=== PATIENT | female | born 1930 | race Caucasian/White ===

== ENCOUNTER 2018-06-04 12:56 | Observation (INO) ==
[2018-06-04] MEDS ORDERED: IOPAMIDOL 100 ML BOTTLE IV ONE (12:57)
[2018-06-04] MEDS ORDERED: 0.9 % SODIUM CHLORIDE 1,000 ML IV ONE (13:05)
[2018-06-04 13:50] LABS: Basophils # (Auto) 0 K/mcL (0.0-0.3); Basophils % (Auto) 0.3 % (0.0-2.0); Eosinophils # (Auto) 0 K/mcL (0.0-0.7); Eosinophils % (Auto) 0 % (0.0-7.0); Granulocytes % (Auto) 87.7 % (38.0-78.0); Lymphocytes % (Auto) 8.6 % (15.5-49.0); Mean Cell Volume 91.4 fL (80.0-100.0); Monocytes # (Auto) 0.4 K/mcL (0.1-0.9); Monocytes % (Auto) 3.4 % (1.0-12.0); Platelet Count 175 K/mcL (140-440); RBC 4.54 M/mcL (4.00-5.20); Red Cell Distribution Width 15.8 % (11.5-14.5)
[2018-06-04 14:12] LABS: ALT/SGPT 23 U/l (0-40); Albumin 4.4 gm/dL (3.2-5.2); Albumin/Globulin Ratio 1.6 (1.0-2.3); Alkaline Phosphatase 89 U/L (39-117); Blood Urea Nitrogen 22 mg/dl (8-23)
--- NOTE | 2018-06-04 15:01 | Cat Scan Report ---
CLINICAL INFORMATION: Trauma COMPARISON: Chest CT 09/14/2007 TECHNIQUE: 280 cc of [id number]-300 were injected intravenously, and 50 seconds later 2.5 mm helical slices were obtained from the lung apices through the subtrochanteric regions of the femurs. Following reconstruction, 2.5 mm sagittal, coronal and axial reformatted images were processed and reviewed at multiple windows and levels. 7 mm MIP reconstructions were obtained through the lungs to optimize nodule detection.The exam was performed using radiation dose optimization techniques including, but not limited to, automated exposure control, adjustment of the mA and/or kV according to patient size and use of iterative reconstruction technique. FINDINGS: Pulmonary parenchymal windows show only minimal scattered scarring and atelectasis in both posterior lower lobes. A small simple appearing left pleural effusion is noted. There is no pneumothorax or hemothorax. Mediastinal windows show the heart is moderately enlarged with mild calcification in the aortic and mitral valve region. There is also calcific plaque in the coronary arteries. The thoracic aorta and pulmonary arteries are normal in contour and caliber. 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 There is no adenopathy in the mediastinal hilar or axillary regions. Images through the abdomen show liver is unremarkable. Gallbladder is surgically absent. 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 This is unchanged from the 2008 CT most compatible with postcholecystectomy papillary stenosis. Pancreas, including the pancreatic duct, is unremarkable. Both kidneys, adrenal glands, spleen are normal. Aorta is normal in contour and caliber with scattered atherosclerotic plaque. Images of the pelvis to the urinary bladder to be normal. Normal-appearing postmenopausal uterus appreciated. There is no free air or free fluid. The stomach, small and large bowel show mild symmetric dilatation moderate stool compatible with mild ileus. Bone windows show no fracture or other acute posttraumatic change. Degenerative mild listhesis present at L3-4 and L4-5. IMPRESSION: 1. No posttraumatic change seen throughout the chest, abdomen or pelvis 2. Moderate dilatation of the intrahepatic and common bile ducts and bowel post cholecystectomy papillary stenosis. It is unchanged from the [address] 3. Mild ileus with a marked amount of colonic stool. 4. Aberrant right subclavian artery - a normal variant Interpreted and Authenticated by: Red Gutierrez 06/04/18
[2018-06-04] MEDS ORDERED: 0.9 % SODIUM CHLORIDE 1,000 ML IV SCH (15:15)
--- NOTE | 2018-06-04 16:24 | Emergency Department Note ---
Weakness HPI - General Chief complaint: Weakness Stated complaint: fall, weakness, back pain Time Seen by Provider: 06/04/18 13:05 Source: patient, EMS Mode of arrival: EMS Limitations: no limitations - History of Present Illness HPI Narrative: 87-year-old female presents with family. She apparently took a fall this morning. Patient will not answer any questions other than yes or no if something hurts. Will not let us know it is going on. She does deny any head or neck pain. States the rest of her body hurts all over. She cannot pinpoint any pain. Just closes her eyes and does not answer if she does not feel like answering. Family states that 3 months ago she moved in with them because her went to a [facility] due to a brain tumor. He recently a couple weeks ago. Since he she has been rapidly declining and refuses to eat or drink much and has some generalized weakness. This morning they heard 2 thumps and went upstairs and she had fallen was on her back. She is complaining of pain in her back, chest, abdomen, pelvis and all over. Denies head or neck pain. They state when she eats she eats a decent amount but she will go a long time without eating. Seems to be much worse the last 48 hours and they are unsure what agree that she has some depression that they think is factoring into this. They state if she gets better and returns to baseline at home they can care for her but they cannot care for her the way she is currently. Patient denies hitting her head and denies loss of consciousness Associated symptoms: Reports: loss of appetite, myalgias. Denies: fever/chills, headaches, nausea/vomiting, shortness of breath, syncope - Related Data Home Medications Medication Instructions Recorded Confirmed Aspirin [Lo-Dose Aspirin EC] 81 mg PO DAILY 06/04/18 06/04/18 Levothyroxine [Synthroid] 50 mcg PO DAILY 06/04/18 06/04/18 NIFEdipine [Nifedipine ER] 30 mg PO DAILY 06/04/18 06/04/18 cloNIDine HCL [Catapres] 0.1 mg PO DAILY 06/04/18 06/04/18 Allergies Allergy/AdvReac Type Severity Reaction Status Date / Time No Known Drug Allergies Allergy Verified 06/04/18 12:59 Review of Systems All systems ED: reviewed and negative except as stated. Past Medical History - Past Medical History Source: other (Patient is extremely poor historian and is not giving us any information at this time.) - Social History smoking status: Unknown if ever smoked Alcohol use: Reports: None Drug use: Reports: none Physical Exam Limitations: no limitations General appearance: alert (Alert and oriented and will respond appropriately and verbally when she feels like it and other times just closes her eyes and refuses to respond.) Head: atraumatic, normocephalic, normal inspection Eye: Present: normal appearance. Absent: conjunctival injection ENT: normal exam, normal oropharynx, mucous membranes moist, TM's normal bilaterally, normal external ear exam Neck: Present: normal inspection, full ROM, trachea midline. Absent: tendern ess, meningismus Chest: Present: symmetric chest wall rise, tenderness (Seems to have some tenderness no matter where you press on her chest but no pinpoint tenderness. No obvious deformity, rash, lesion, ecchymosis, or edema. No crepitus.) Respiratory: Present: normal lung sounds bilaterally. Absent: respiratory distress, rales/crackles, accessory muscle use Cardiovascular: Present: regular rate, normal heart sounds Abdominal: Present: soft, normal bowel sounds. Absent: distention, tenderness, guarding, rebound Extremities: Present: normal inspection. Absent: pedal edema Back: Present: tenderness (Diffuse tenderness throughout the back. Cannot pinpoint any tenderness specifically is anywhere you touch her it hurts.), other (No step-off or deformity). Absent: rashes Psychiatric: Present: depressed, flat affect Skin: Present: warm, dry, intact, normal color Course Course Narrative: At [address] I did speak with Dr[address] Edwards about this patient. He agrees to admit her observation Vital Signs Temperature 98.8 F 06/04/18 12:57 Pulse Rate 62 06/04/18 12:57 Respiratory Rate 18 06/04/18 12:57 Blood Pressure 167/83 06/04/18 12:57 Pulse Oximetry (%) 100 06/04/18 12:57 Temperature 98.8 F 06/04/18 12:57 Pulse Rate 77 06/04/18 15:29 Respiratory Rate 18 06/04/18 15:29 Blood Pressure 168/78 06/04/18 15:29 Pulse Oximetry (%) 96 06/04/18 15:29 Weakness - Lab Data Result diagrams: 06/04/18 13:09 06/04/18 13:09 Lab Results 06/04/18 06/04/18 Range/Units 13:09 13:09 WBC 11.9 H (4.5-11.0) K/mcL RBC 4.54 (4.00-5.20) M/mcL Hgb 13.3 (12.0-15.0) g/dL Hct 41.5 (36.0-48.0) % POC Hct 42.0 (36.0-48.0) % MCV 91.4 (80.0-100.0) fL MCH 29.3 (26.0-34.0) pg MCHC 32.0 (31.0-36.0) g/dL RDW 15.8 H (11.5-14.5) % Plt Count 175 (140-440) K/mcL MPV 10.1 (7.4-10.4) fL Gran % 87.7 H (38.0-78.0) % Lymph % (Auto) 8.6 L (15.5-49.0) % [place] % (Auto) 3.4 (1.0-12.0) % Eos % (Auto) 0 (0.0-7.0) % Baso % (Auto) 0.3 (0.0-2.0) % Gran # 10.5 H (1.8-8.0) K/mcL Lymph # (Auto) 1.0 L (1.5-4.8) K/mcL [place] # (Auto) 0.4 (0.1-0.9) K/mcL Eos # (Auto) 0 (0.0-0.7) K/mcL Baso # (Auto) 0 (0.0-0.3) K/mcL POC Sodium 141 (133-145) mmol/L Sodium 142 (133-145) mmol/L POC Potassium 4.0 (3.3-5.1) mmol/L Potassium 4.3 (3.3-5.1) mmol/L POC Chloride 104 (96-108) mmol/L Chloride 103 (96-108) mmol/L Carbon Dioxide 21 L (22-30) mmol/L POC Total CO2 24 (22-30) mmol/L Anion Gap 18.0 H (8-16) POC BUN 25 H (8-23) mg/dl BUN 22 (8-23) mg/dl Creatinine 1.2 H (0.6-1.1) mg/dl POC Creatinine 1.1 (0.6-1.1) mg/dl GFR Calculation 40 Glucose 122 H (70-105) mg/dL POC Glucose 118 H (70-105) mg/dL Calcium 10.4 (8.6-10.4) mg/dl POC WB Ioniz Calcium 1.26 (1.16-1.32) mmol/L Total Bilirubin 0.6 (0.0-1.0) mg/dL AST 37 (0-37) U/l ALT 23 (0-40) U/l Alkaline Phosphatase 89 (39-117) U/L Total Protein 7.2 (5.9-8.4) gm/dL Albumin 4.4 (3.2-5.2) gm/dL Globulin 2.8 (2.2-3.7) gm/dL Albumin/Globulin Ratio 1.6 (1.0-2.3) Disposition Pt seen by [facility] SERVICE ASSOCIATE/PA only: No Clinical Impression: FTT (failure to thrive) in adult, Weakness, Fall, Generalized pain, Depression Disposition: Xfer As Outpt/Obs ([facility]) Condition: Fair Time of Disposition: 16:30
--- NOTE | 2018-06-04 16:46 | Internal Med History&Physical ---
Medical - H&P: HPI Patient information: Note initiated : 06/04/18 at 4:44 pm Service Date, if different from initiated Date: [] Patient: Yudith Mas a 87 y/o F admitted on for Fall, Weakness, Back Pain. Chief Complaint: [] Chief complaint: weakness, fall History of present illness: Ms. Mas is a 87 year old F who presents to the ER after sustaining a fall this morning. Patient is accompanied with her son Souleymane. She has been gradually losing weight over the last few months and has since moved with her son and [id number] residing in the [place]. Souleymane says she has gained 8 pounds with colsely monitored diet but her appetite and activity remains limited. She lost her in early this month. As per family Yudith has been fairly depressed grieving her 's loss. This morning after getting up family heard a thud and found her on the floor. She was in minimal pain. She was absolutely brought in later in the afternoon to the ER. Initial workup was essentially unremarkable including CT abdomen pelvis except for mild dehydration and a BMI of 15. Hospitalist service was consulted in light of severe weakness failure to thrive. At the time of evaluation patient is accompanied with her son and [id number]. Most of the history is obtained from the family. Patient however was able to endorse to review of systems and denies fever chills, diarrhea, shortness of breath, chest pain, lightheadedness. She attributes fall to getting off balance. Review of systems 10 point review system was performed and is negative except for one discussed above Medical - H&P: PMH Medical history: Hypothyroid HTN Medical - H&P: Meds Home Medications Medication Instructions Recorded Confirmed Type Aspirin [Lo-Dose Aspirin EC] 81 mg PO DAILY 06/04/18 06/04/18 History Levothyroxine [Synthroid] 50 mcg PO DAILY 06/04/18 06/04/18 History NIFEdipine [Nifedipine ER] 30 mg PO DAILY 06/04/18 06/04/18 History cloNIDine HCL [Catapres] 0.1 mg PO DAILY 06/04/18 06/04/18 History Allergies Allergy/AdvReac Type Severity Reaction Status Date / Time No Known Drug Allergies Allergy Verified 06/04/18 12:59 Medical - H&P: Exam - Constitutional Vitals: Temp Pulse Resp BP Pulse Ox 98.8 F 77 18 168/78 96 06/04/18 12:57 06/04/18 15:29 06/04/18 15:29 06/04/18 15:29 06/04/18 15:29 General appearance: thin Exam: Patient withdrawn and fatigued however alert Eye movements symmetrical Oral cavity dry Temporal wasting No ear nose discharge Neck no lymph adenopathy S1-S2 regular rhythm ESM grade 1 Diminished breath sounds bases Abdomen soft Lower externally no cyanosis clubbing/no joint swelling erythema Skin no suspicious lesion except for occasional bruises Psych anxious and appears depressed neuro nonfocal Medical - H&P: Reslt - Labs CBC & Chem 7: 06/04/18 13:09 06/04/18 13:09 Labs: Short CBC 06/04/18 Range/Units 13:09 WBC 11.9 H (4.5-11.0) K/mcL Hgb 13.3 (12.0-15.0) g/dL Hct 41.5 (36.0-48.0) % Plt Count 175 (140-440) K/mcL BMP 06/04/18 13:09 Sodium 142 Potassium 4.3 Chloride 103 Carbon Dioxide 21 L BUN 22 Creatinine 1.2 H Glucose 122 H Calcium 10.4 Liver Function 06/04/18 Range/Units 13:09 Total Bilirubin 0.6 (0.0-1.0) mg/dL AST 37 (0-37) U/l ALT 23 (0-40) U/l Alkaline Phosphatase 89 (39-117) U/L Albumin 4.4 (3.2-5.2) gm/dL Medical - H&P: A/P (1) FTT (failure to thrive) in adult Current visit: Yes Status: Acute * FTT-with severe weight loss/BMI 15. Start nutrition support and dietary consult * Weakness-PT OT eval * Hypothyroidism continue thyroxine * History hypertension continue Klonopin/nifedipine * Prophylaxis heparin Plan * Obs admit * Nutrition support/dietary consult * PT/OT * Case management consult for safe discharge planning
[2018-06-04 17:08] LABS: Appearance,Urine CLEAR; Bacteria,Urine 0 /hpf (0); Bilirubin,Urine NEG (NEG); Color,Urine STRAW; Glucose,Urine (UA) NEGATIVE (NEG); Leukocyte Esterase,Urine NEG /uL (NEG); Mucus,Urine FEW /hpf (0); Protein,Urine NEG (NEG); Specific Gravity,Urine 1.019 (1.000-1.035); Urine Blood 0.03 mg/dL (<0.03); Urine RBC 4 /hpf (0-1); Urine Squamous Epithelial Cell 0 /hpf (0-4); Urine WBC < 1 /hpf (0-4); Urobilinogen,Urine NEG (NEG)
[2018-06-04] MEDS ORDERED: ONDANSETRON 4 MG/2 ML VIAL IV PRN (17:11)
[2018-06-04] MEDS: 0.9 % SODIUM CHLORIDE 1,000 ML IV SCH (17:44)
[2018-06-04] MEDS: ACETAMINOPHEN 325 MG TABLET PO PRN (18:23)
[2018-06-04 18:30] LABS: Basophils # (Auto) 0 K/mcL (0.0-0.3); Basophils % (Auto) 0.2 % (0.0-2.0); Eosinophils # (Auto) 0 K/mcL (0.0-0.7); Eosinophils % (Auto) 0 % (0.0-7.0); Granulocytes % (Auto) 89.4 % (38.0-78.0); Lymphocytes # (Auto) 0.8 K/mcL (1.5-4.8); Lymphocytes % (Auto) 8.5 % (15.5-49.0); Mean Cell Volume 90.4 fL (80.0-100.0); Mean Corpuscular HGB Conc 32.9 g/dL (31.0-36.0); Monocytes # (Auto) 0.2 K/mcL (0.1-0.9); Monocytes % (Auto) 1.9 % (1.0-12.0); Platelet Count 161 K/mcL (140-440); RBC 4.05 M/mcL (4.00-5.20); Red Cell Distribution Width 15.8 % (11.5-14.5)
[2018-06-04] MEDS: HEPARIN 5,000 UNIT/ML VIAL SQ SCH (20:38)
[2018-06-04] MEDS: CYANOCOBALAMIN (VITAMIN B-12) 500 MCG TABLET PO SCH (20:39)
[2018-06-04] MEDS: DOCUSATE SODIUM 100 MG CAPSULE PO SCH (20:39)
[2018-06-04] MEDS: SENNOSIDES/DOCUSATE SODIUM 1 TAB TABLET PO SCH (20:39)
[2018-06-04] MEDS: 0.9 % SODIUM CHLORIDE 10 ML SYRINGE IV SCH (20:45)
[2018-06-05] MEDS: 0.9 % SODIUM CHLORIDE 1,000 ML IV SCH ×2 (03:39→14:36)
[2018-06-05 06:11] LABS: Basophils # (Auto) 0 K/mcL (0.0-0.3); Basophils % (Auto) 0.1 % (0.0-2.0); Eosinophils # (Auto) 0 K/mcL (0.0-0.7); Eosinophils % (Auto) 0.2 % (0.0-7.0); Granulocytes % (Auto) 73.8 % (38.0-78.0); Lymphocytes # (Auto) 1.6 K/mcL (1.5-4.8); Lymphocytes % (Auto) 20.3 % (15.5-49.0); Mean Cell Volume 90.9 fL (80.0-100.0); Mean Corpuscular HGB Conc 32.2 g/dL (31.0-36.0); Monocytes # (Auto) 0.4 K/mcL (0.1-0.9); Monocytes % (Auto) 5.6 % (1.0-12.0); Platelet Count 155 K/mcL (140-440); RBC 3.85 M/mcL (4.00-5.20); Red Cell Distribution Width 15.3 % (11.5-14.5)
[2018-06-05 06:35] LABS: ALT/SGPT 15 U/l (0-40); Albumin 3.4 gm/dL (3.2-5.2); Albumin/Globulin Ratio 1.6 (1.0-2.3); Alkaline Phosphatase 71 U/L (39-117); Bilirubin,Direct < 0.2 mg/dL (0.0-0.3); Blood Urea Nitrogen 14 mg/dl (8-23); Gamma Glutamyl Transpeptidase 7 U/L (5-36); Uric Acid 4.9 mg/dL (2.5-8.0)
[2018-06-05] MEDS: 0.9 % SODIUM CHLORIDE 10 ML SYRINGE IV SCH ×3 (06:37→20:44)
[2018-06-05] MEDS: HEPARIN 5,000 UNIT/ML VIAL SQ SCH ×2 (08:40→20:43)
[2018-06-05] MEDS: ACETAMINOPHEN 325 MG TABLET PO PRN ×2 (08:40→13:18)
[2018-06-05] MEDS: CYANOCOBALAMIN (VITAMIN B-12) 500 MCG TABLET PO SCH ×2 (08:42→20:39)
[2018-06-05] MEDS: FOLIC ACID 1 MG TABLET PO SCH (08:42)
[2018-06-05] MEDS: MULTIVIT,THER IRON,CA,FA & MIN 1 TABLET PO SCH (08:42)
[2018-06-05] MEDS: DOCUSATE SODIUM 100 MG CAPSULE PO SCH ×2 (08:42→20:39)
--- NOTE | 2018-06-05 11:21 | Internal Med Progress Note ---
Medical - PN: Subj Patient information: Note initiated : 06/05/18 at 11:18 am Service Date, if different from initiated Date: [] Patient: Yudith Mas a 87 y/o F admitted on 06/04/18 for Fall, Weakness, Back Pain. Chief Complaint: [] Interval history: Ms. Mas is a 87 year old F who presents to the ER after sustaining a fall this morning. Patient is accompanied with her son Souleymane. She has been gradually losing weight over the last few months and has since moved with her son and [id number] residing in the [place]. Souleymane says she has gained 8 pounds with colsely monitored diet but her appetite and activity remains limited. She lost her in early this month. As per family Yudith has been fairly depressed grieving her 's loss. This morning after getting up family heard a thud and found her on the floor. She was in minimal pain. She was absolutely brought in later in the afternoon to the ER. Initial workup was essentially unremarkable including CT abdomen pelvis except for mild dehydration and a BMI of 15. Hospitalist service was consulted in light of severe weakness failure to thrive. At the time of evaluation patient is accompanied with her son and [id number]. Most of the history is obtained from the family. Patient however was able to endorse to review of systems and denies fever chills, diarrhea, shortness of breath, chest pain, lightheadedness. She attribu aric fall to getting off balance. 06/05-patient alert and responding to commands, appears anxious and withdrawn. No overnight events. Tolerating diet. Ongoing rehab and nutrition support. Case management arranging discharge planning. No family at bedside. - Constitutional Vitals: Vital Signs Temp Pulse Resp BP Pulse Ox 98.7 F 50 L 12 180/75 98 06/05/18 07:22 06/05/18 07:22 06/05/18 07:22 06/05/18 07:22 06/05/18 07:22 Period Temp Pulse Resp BP Sys/Gupta Pulse Ox Last 24 Hr 97.7 F-98.8 F 50-77 12-22 143-182/68-95 96-100 Intake and Output 06/04/18 06/05/18 06/05/18 21:59 05:59 13:59 Intake Total 1000 1042 120 Output Total 1 2 Balance 999 1042 118 Weight 90 lb Intake & Output: Intake & Output 06/04/18 06/05/18 06/05/18 21:59 05:59 13:59 Intake Total 1000 1042 120 Output Total 1 2 Balance 999 1042 118 Weight 90 lb Intake: IV 1000 992 Sodium Chloride 0.9% 1,000 ml @ 1000 992 100 mls/hr IV .Q10H [facility] Rx#: [id number] Oral 50 120 Output: # of times incontinent of urine 1 2 Other: Meal Breakfast Percent of Meal Consumed 100% Feeding Ability Assist with Tray Set Up General appearance: no acute distress, thin Exam: Alert and responding to commands No anxiety Appears depressed No labored breathing Medical - PN: Obj Da - Labs CBC & Chem 7: 06/05/18 05:04 06/05/18 05:05 Labs: Abnormal Lab Results 06/05/18 06/05/18 06/04/18 05:05 05:04 17:33 WBC RBC 3.85 L Hgb 11.3 L Hct 35.0 L RDW 15.3 H 15.8 H Gran % 89.4 H Lymph % (Auto) 8.5 L Gran # 8.9 H Lymph # (Auto) 0.8 L Chloride 111 H Carbon Dioxide 20 L Anion Gap POC BUN Creatinine Glucose POC Glucose Total Protein 5.5 L Globulin 2.1 L Urine Ketones Urine Occult Blood Urine RBC 06/04/18 06/04/18 06/04/18 16:23 13:09 13:09 WBC 11.9 H RBC Hgb Hct RDW 15.8 H Gran % 87.7 H Lymph % (Auto) 8.6 L Gran # 10.5 H Lymph # (Auto) 1.0 L Chloride Carbon Dioxide 21 L Anion Gap 18.0 H POC BUN 25 H Creatinine 1.2 H Glucose 122 H POC Glucose 118 H Total Protein Globulin Urine Ketones 5/tr A Urine Occult Blood 0.03 A Urine RBC 4 H Meds: Medications Acetaminophen (Tylenol) 650 mg PO Q4-6HP PRN PRN Reason: PAIN/FEVER > 101 Last Admin: 06/05/18 08:40 Dose: 650 mg Documented by: Cyanocobalamin (Vitamin B-12) 1,000 mcg PO BID [facility] Stop: 06/09/18 09:01 Last Admin: 06/05/18 08:42 Dose: 1,000 mcg Documented by: Docusate Sodium (Colace) 100 mg PO BID [facility] Last Admin: 06/05/18 08:42 Dose: 100 mg Documented by: Folic Acid (Folic Acid) 1 mg PO DAILY [facility] Last Admin: 06/05/18 08:42 Dose: 1 mg Documented by: Heparin Sodium (Porcine) (Heparin) 5,000 unit SQ Q12 [facility] Last Admin: 06/05/18 08:40 Dose: 5,000 unit Documented by: Sodium Chloride (Sodium Chloride 0.9%) 1,000 mls @ 100 mls/hr IV .Q10H [facility] Last Admin: 06/05/18 03:39 Dose: 100 mls/hr Documented by: Iron Carb/Multivit/[place]/Folic Acid (Multivitamin W/Minerals) 1 tab PO DAILY [facility] Last Admin: 06/05/18 08:42 Dose: 1 tab Documented by: Ondansetron HCl (Zofran) 4 mg IV Q4-6HP PRN PRN Reason: Nausea And Vomiting Senna/Docusate Sodium (Senna Plus Tablet) 1 tab PO HS [facility] Last Admin: 06/04/18 20:39 Dose: 1 tab Documented by: Sodium Chloride (Saline Flush) 10 ml IV Q8 [facility] Last Admin: 06/05/18 06:37 Dose: Not Given Documented by: Medical - PN: A/P - Time Spent With Patient Total time spent is greater than 50% in coordination of care (as documented) at patient's floor/unit and/or counseling patient: 15 - 24 minutes (1) FTT (failure to thrive) in adult Status: Acute Assessment and plan: * Failure to thrive-continue nutrition support/dietary supplements. * Weakness-PT OT eval * Hypothyroidism continue thyroxine * Acute grief reaction secondary loss of spouse. If persistent beyond 30 days may consider SSRI * History hypertension continue clonidine/nifedipine * Prophylaxis heparin Plan * Continue Nutrition support * Aggressive rehab * Pre-existing medical condition management as above * Case management for discharge planning Current Visit: Yes Medical - PN: Qual - VTE Deep Vein Thrombosis/Pulmonary Embolism Present on Admission: No
[2018-06-05] MEDS: SENNOSIDES/DOCUSATE SODIUM 1 TAB TABLET PO SCH (20:44)
[2018-06-06] MEDS: 0.9 % SODIUM CHLORIDE 1,000 ML IV SCH (00:56)
[2018-06-06 05:39] LABS: Basophils # (Auto) 0 K/mcL (0.0-0.3); Basophils % (Auto) 0.3 % (0.0-2.0); Eosinophils # (Auto) 0 K/mcL (0.0-0.7); Eosinophils % (Auto) 0.3 % (0.0-7.0); Granulocytes % (Auto) 82.6 % (38.0-78.0); Lymphocytes # (Auto) 1.3 K/mcL (1.5-4.8); Lymphocytes % (Auto) 11.9 % (15.5-49.0); Mean Cell Volume 91.3 fL (80.0-100.0); Mean Corpuscular HGB Conc 32.6 g/dL (31.0-36.0); Monocytes # (Auto) 0.5 K/mcL (0.1-0.9); Monocytes % (Auto) 4.9 % (1.0-12.0); Platelet Count 166 K/mcL (140-440); RBC 4.15 M/mcL (4.00-5.20); Red Cell Distribution Width 15.4 % (11.5-14.5)
[2018-06-06 05:49] LABS: ALT/SGPT 13 U/l (0-40); Albumin 3.3 gm/dL (3.2-5.2); Albumin/Globulin Ratio 1.4 (1.0-2.3); Alkaline Phosphatase 74 U/L (39-117); Bilirubin,Direct < 0.2 mg/dL (0.0-0.3); Blood Urea Nitrogen 14 mg/dl (8-23); Gamma Glutamyl Transpeptidase 9 U/L (5-36); Uric Acid 3.5 mg/dL (2.5-8.0)
[2018-06-06] MEDS: 0.9 % SODIUM CHLORIDE 10 ML SYRINGE IV SCH (06:31)
[2018-06-06] MEDS: ACETAMINOPHEN 325 MG TABLET PO PRN (08:08)
[2018-06-06] MEDS: FOLIC ACID 1 MG TABLET PO SCH (08:10)
[2018-06-06] MEDS: MULTIVIT,THER IRON,CA,FA & MIN 1 TABLET PO SCH (08:10)
[2018-06-06] MEDS: DOCUSATE SODIUM 100 MG CAPSULE PO SCH (08:10)
[2018-06-06] MEDS: CYANOCOBALAMIN (VITAMIN B-12) 500 MCG TABLET PO SCH (08:10)
[2018-06-06] MEDS: HEPARIN 5,000 UNIT/ML VIAL SQ SCH (08:10)
--- NOTE | 2018-06-06 09:11 | Discharge Summary ---
Medical - DS: Prov Patient information: Note initiated : 06/06/18 at 9:08 am Service Date, if different from initiated Date: [] Patient: Yudith Mas 87 y/o F admitted on 06/04/18 for Fall, Weakness, Back Pain. Chief Complaint: [] Date of admission: 06/04/18 17:10 Discharge date: 06/06/18 Consults: 06/04/18 16:11 Consult to Physician [CONS] Stat Comment: Consulting Provider: Rj Meyer Reason For Exam: Physician to Consult Medical - DS: Meds - Discharge Medications Active and Home Medications: Home Medications Aspirin [Lo-Dose Aspirin EC] 81 mg PO DAILY 06/04/18 [History Confirmed 06/04/18 Last Taken Unknown] Levothyroxine [Synthroid] 50 mcg PO DAILY 06/04/18 [History Confirmed 06/04/18 Last Taken Unknown] NIFEdipine [Nifedipine ER] 30 mg PO DAILY 06/04/18 [History Confirmed 06/04/18 Last Taken Unknown] cloNIDine HCL [Catapres] 0.1 mg PO DAILY 06/04/18 [History Confirmed 06/04/18 Last Taken Unknown] Medical - DS: Hosp Hospital course: Discharge diagnosis * Failure to thrive-continue nutrition support/dietary supplements. Transfer to SNF for assisted feeding * Weakness-PT OT to continue at SNF * Hypothyroidism continue thyroxine * Acute grief reaction secondary loss of spouse. If persistent beyond 30 days consider SSRI * History of hypertension continue clonidine/nifedipine Brief hospital course Ms. Mas is a 87 year old F who presents to the ER after sustaining a fall this morning. Patient is accompanied with her son Souleymane. She has been gradually losing weight over the last few months and has since moved with her son and [id number] residing in the [place]. Souleymane says she has gained 8 pounds with colsely monitored diet but her appetite and activity remains limited. She lost her in early this month. As per family Yudith has been fairly depressed grieving her 's loss. This morning after getting up family heard a thud and found her on the floor. She was in minimal pain. She was absolutely brought in later in the afternoon to the ER. Initial workup was essentially unremarkable including CT abdomen pelvis except for mild dehydration and a BMI of 15. Hospitalist service was con sulted in light of severe weakness failure to thrive. At the time of evaluation patient is accompanied with her son and [id number]-wax. Most of the history is obtained from the family. Patient however was able to endorse to review of systems and denies fever chills, diarrhea, shortness of breath, chest pain, lightheadedness. She attributes fall to getting off balance. 06/05-patient alert and responding to commands, appears anxious and withdrawn. No overnight events. Tolerating diet. Ongoing rehab and nutrition support. Case management arranging discharge planning. No family at bedside. 06/06-patient doing well. No overnight events. No concerns per staff. Discharging to SNF. Tolerating diet and physical therapy. Discharge instructions as below Discharge diagnosis: . - Time Spent with Patient Total time spent providing and/or coordinating discharge services: Greater than 30 minutes Medical - DS: Exam - Constitutional Vitals: Vital Signs Temp Pulse Resp BP Pulse Ox 06/06/18 07:21 98.6 F 60 18 160/61 95 06/06/18 03:34 98.1 F 62 18 171/74 94 06/05/18 23:00 98.3 F 66 18 183/89 95 06/05/18 18:44 99.0 F 56 L 20 190/84 97 06/05/18 15:46 100.8 F H 57 L 12 170/78 96 06/05/18 11:28 100.1 F H 56 L 14 160/70 96 Intake and Output 06/05/18 06/06/18 06/06/18 21:59 05:59 13:59 Intake Total 340 1075 50 Output Total 3 1 1 Balance 337 1074 49 Intake: IV 1000 Sodium Chloride 0.9% 1,000 ml @ 1000 100 mls/hr IV .Q10H [facility] Rx#: [id number] Oral 340 75 50 Output: # of times incontinent of urine 3 1 1 Other: Meal Nourishment/Supplement Breakfast Percent of Meal Consumed 100% 50% Feeding Ability Assist with Tray Set Up Independent Stool Size Small Stool Color Brown Stool Consistency Soft # Bowel Movements 1 # of times incontinent of 1 Bowels Weight 91 lb Medical - DS: Data Labs on day of discharge: Labs from last 24 hours 06/06/18 06/06/18 04:18 04:17 WBC 10.7 RBC 4.15 Hgb 12.4 Hct 37.9 MCV 91.3 MCH 29.7 MCHC 32.6 RDW 15.4 H Plt Count 166 MPV 9.8 Gran % 82.6 H Lymph % (Auto) 11.9 L [place] % (Auto) 4.9 Eos % (Auto) 0.3 Baso % (Auto) 0.3 Gran # 8.8 H Lymph # (Auto) 1.3 L [place] # (Auto) 0.5 Eos # (Auto) 0 Baso # (Auto) 0 Sodium 138 Potassium 3.4 Chloride 104 Carbon Dioxide 20 L Anion Gap 14.0 BUN 14 Creatinine 1.0 GFR Calculation 50 Glucose 111 H Uric Acid 3.5 Calcium 9.3 Phosphorus 2.0 L Magnesium 1.8 Total Bilirubin 0.4 Direct Bilirubin < 0.2 GGT 9 AST 25 ALT 13 Alkaline Phosphatase 74 Lactate Dehydrogenase 224 Total Protein 5.6 L Albumin 3.3 Globulin 2.3 Albumin/Globulin Ratio 1.4 Triglycerides 100 Medical - DS: A/P - Patient/Caregiver Discharge Instructions Activity: as per physical therapy, increase activity as tolerated Diet: Regular Diet Additional Instructions: Continue diet support PT OT - Problem Maintenance (1) FTT (failure to thrive) in adult Status: Acute - Follow up Plan Disposition: Xfer SNF Prognosis: Fair Rehab Potential: Fair I certify that the patient requires SNF services: Yes Overall status at discharge: patient is back to baseline Medical - DS: Qual - VTE Deep Vein Thrombosis/Pulmonary Embolism Present on Admission: No
== END 2018-06-06 10:05 ==
LOC: ED 12:56 → MEDSUR 12:56
PROVIDERS: ADMIT Internal Medicine; ATTEND Internal Medicine